=== PATIENT | male | born 1995 | race Two or more races ===

== ENCOUNTER 2025-05-27 17:51 | Emergency (ER) | payer OTHER, SELFPAY ==
--- NOTE | ~2025-05-27 | XR_ITS ---
CLINICAL HISTORY: constipation?? 1 view abdomen Comparison: None provided Findings: No pneumoperitoneum or pneumatosis. No abnormal calcifications. No acute fractures. IMPRESSION: Normal stool quantity. This document has been electronically signed by: Anthony Vanegas MD on 05/27/2025 22:10:20
[2025-05-27 18:03] VITALS: BP 165/71; PULSE 86; RESP 18; TEMP 36.3; O2SAT 99; BMI 34.7
--- OUTSIDE RECORDS SUMMARY | 2025-05-27 18:31 | XMS_ITS | Data Portability ---
Author Organization THOMAS [facility] [facility], [address] Address [address] [place] [address] Assessment No assessment recorded. Plan of Treatment Reminders Order Date Submit Date Provider Last Modified By Organization Details Last Modified Time Details Appointments None recorded. Lab culture, respiratory 2022 023 [place] [facility], [address] [place] [address], [place], [address], 3 18:05:45 Referral None recorded. Procedures None recorded. Surgeries None recorded. Imaging None recorded. Medication Orders amoxicillin 875 mg-potassiu m clavulanate 125 mg tablet 2022 023 [facility] #[id number], [address] [place], [address], 3 16:23:39 prednisone 10 mg tablet 2022 023 [facility] #[id number], [address] [place], [address], 3 16:23:39 Patient TargetsNo targets recorded. Patient Instructions Encounter Date Encounter Id Patient Instructions Last Modified By Organization Details Last Modified Time 08/03/2022 [id number] uvulitis: care instructions [email or web address] Not available 08/03/2022 16:23:37 Based on your Presentation, Exam, and Lab Testing you are being diagnosed with Uvulitis. Take Benedryl when you get home. Most likely your swollen uvula is being caused by a virus, acid from vomiting, bacteria, or yeast. I am going to send a Throat Culture to the. This will take about 72 hours for that result to return. We will contact you if it positive - if for some reason you don't get a copy of your results or hear from us - please contact our office. I am going to prescribe you and antibiotic to cover this infection. Please be sure to complete the full course of this antibiotic to prevent antibiotic resistance. Antibiotics will typically take 4-5 days to start to work with symptom improvement. You were prescribed Prednisone - Here is some general Information regarding this medication. 1. Make sure you take with Food 2. Do not take right before bedtime -this should be taken during the day because it may make you a little more wired. May keep you from sleeping. 3. Prednisone will increase glucose -so if you are a diabetic then you will need to monitor your glucose closely. Please d/c if glucose goes above 300. 4. Do not take this medication with Ibuprofen The following are my other recommendations to help with symptoms and is important for this diagnosis: 1. Do not share any food or drinks - strep is passed through direct saliva exchange (NOT IN THE AIR) 2. Change your toothbrush in 3-4 days so that you don't re-infect yourself after you complete the antibiotic. 3. Take Ibuprofen or Tylenol if you do not have any allergies to these medications. If you take a blood thinner you should not take NSAIDS like Ibuprofen. These medication will help with the inflammation in your respiratory tract which should help the cough. (I would alternate between Tylenol 650 mg and your Ibuprofen 600 mg every 4 hours) 4. Do not take any Cold Medications that have a Decongestant in it - this will dry out your throat and make the sore throat worse. 5. Drinking Hot Tea with honey can help coat and soothe your throat. 6. You would be considered contagious for the next 24-48 hours, or until fever resolves. I would be seen again if you develop any of the following symptoms. 1. Fever > 101.0 2. Stiff neck - where you can't turn your neck 3. Trouble swallowing your saliva - drooling 4. Swelling of a lymph node in your throat that is painful to touch 5. Difficulty breathing 6. Severe Headache Thank you for using [facility] today, please feel free to contact our office if you have any questions or concerns. Not available 08/03/2022 16:31:56 Reason for Referral None Reported. Results Created Date Observation Date Name Description Value Unit Range Abnormal Flag Note LastModifiedBy Organization Detail LastModifiedTime 08/03/1908/06/2022 UPPER RESPI RATOR Y CULTU RE upper respiratory culture FINAL REPORT Not Available [facility] ([facility]) [address], [place], [address], 08/06/2022 18:05:44 08/03/1908/06/2022 UPPER RESPI RATOR Y CULTU RE result 1 COMMEN T Routi ne respi rator y peter Not Available [facility] ([facility]) [address], [place], [address], 08/06/2022 18:05:44 Result Notes None recorded. Problems No Known Problems Medical Equipment None Reported. Allergies No known drug allergies Medications Name Sig Start Date Stop Date Status Note LastModified by Organization Details LastModified Time prednisone 10 mg tablet 4 pills po qd x 3 days, 3 pills po qd x 3 days, 2 pills po qd x 2 days, 1 pills po qd x 2 days 023 active Not Available Not Available Not Avai lable amoxicillin 875 mg-potassium clavulanate 125 mg tablet Take 1 tablet twice a day by oral route. 023 active Not Available Not Available Not Avai lable Vitals Date Recorded Heart rate Systolic And Diastolic Provider Name and Address Organization Details Last Updated DateTime 08/03/2022 76 /min 134/82 mm[Hg] THOMAS BOATENG [address] [place], [address], [place] - [facility] 08/03/2022 16:34:04 Date Recorded Body weight Body mass index (BMI) Body height Oxygen saturation Oxygen saturation in Arterial blood by Pulse oximetry Pain severity - 0-10 verbal numeric rating [Score] - Reported Heart rate Respiratory rate Systolic And Diastolic Provider Name and Address Organization Details Last Updated DateTime 3 216696. 86 g 40.2 kg/m2 177.8 cm 98 % 98 % 6 120 /min 18 /min 174/113 mm[Hg] KADY RECINOS [place] - [facility] 15:57:25 Social History Question Answer Notes LastModified by Organizat ion Details LastModified Time Tobacco Smoking Status Never Smoker THOMAS Ramirez - [facility] 08/03/2022 15:56:48 Have You Recently Traveled Abroad? No Information not available 08/03/2022 Sex: Unknown Functional Status Question Answer Note LastModified by Organizat ion Details LastModified Time Do you use any illicit or recreational drugs? No Information not available 08/03/2022 Do you or have you ever used any other forms of tobacco or nicotine? No Information not available 08/03/2022 What is your level of alcohol consumption? None Information not available 08/03/2022 Are you currently employed? Yes Information not available 08/03/2022 Mental Status None recorded. Family History Nothing Reported. Medical History No medical history recorded. Past Encounters Encounter ID Performer Location Encounter Start Date Encounter Closed Date Diagnosis/Indication Diagnosis SNOMED-CT Code Diagnosis ICD10 Code Diagnosis IMO Codes Diagnosis Note [id number] THOMAS BOATENG [address] [address] 08/03/2022 13:51:44 08/03/2022 16:32:43 Uvulitis 424227445 K12.2 augmentin Health Concerns Section Related Observation LastModified by Organization Detai ls LastModified Time None Recorded Concern Status LastModified by Organization Details LastModified Time None Recorded Advance Directives Directive None Recorded Payers Insurance Date Sequence Insurance Name Policy Number Policy Sanders Covered Member ID Sanders Member ID Guarantor Name 08/03/2022 PROMPT PAY [place] Notes Date Note Type Note Provider Name and Address Organization Details Recorded Time 08/03/2022 text/html Sore throatRepor em by PatientSore ThroatFor associated symptoms, patient reportscoughingbut reportsno sputum production,no shortness of breath, andno wheezing. For source of patient information, patient reportsinformation obtained from patientandpatient arrived at urgent care ambulatory(presents with mom who is helping him to talk). For location, patient reportsthroat. For severity, patient reportsmild. For onset/timing, patient reports1 days.The patients mom reports he woke up this morning with an upset stomach and vomited a few times. After that he started to develop swelling on the uvula that is enlongated now. He states that when he tries to talk it causes him to gag and cough. No pain. No fever. Nausea is gone. Non smoker. No lip or tongue swelling. THOMAS BOATENG [facility] [place], [address], [place] - [facility] 08/03/2022 16:34:24
[2025-05-27 18:35] LABS: MANUAL DIFF FLAG NO
[2025-05-27 18:40] LABS: Hematocrit 43.3 % (42.0-52.0); Hemoglobin 14.8 g/dl (14.0-18.0); Imm Gran Abs Auto 0.03 X10*3/uL (0.00-0.03); Imm Gran Pct Auto 0.3 % (0.0-0.4); Lymphocytes Absolute Auto 2.2 X10*3/uL (1.2-4.9); Mean Corpuscular HGB Conc 34.2 g/dl (31.0-36.0); Mean Corpuscular Hemoglobin 28.1 pg (27.0-33.0); Mean Corpuscular Volume 82.2 fL (80.0-98.0); NRBC Abs Auto 0.000 X10*3/uL (0.0-0.012); NRBC Pct Auto 0.0 /100WBC (0.0-0.2); Platelet Count 355 X10*3/uL (160-400); Red Blood Count 5.27 X10*6/uL (4.60-5.80); White Blood Count 8.6 X10*3/uL (4.8-10.8)
[2025-05-27 18:54] LABS: Alanine Aminotransferase 36 U/L (0-40); Albumin Level 4.9 g/dL (3.5-5.0); Alkaline Phosphatase 112 U/L (39-117); Anion Gap 16 (12-20); Aspartate Amino Transferase 26 U/L (5-37); Blood Urea Nitrogen 11 mg/dL (9-16); Calcium 9.8 mg/dL (8.4-10.2); Carbon Dioxide 24 mmol/L (22-29); Chloride 105 mmol/L (96-108); Creatinine Clr Calc Pharmacy 153.2; Estimated Glomerular Filt Rate > 60; Lipase 34 U/L (8-78); Potassium 4.1 mmol/L (3.3-5.1); Sodium 141 mmol/L (135-145); Total Protein 8.5 g/dL (6.5-8.0)
[2025-05-27 20:46] VITALS: BP 159/91; PULSE 83; RESP 16; TEMP 36.9; O2SAT 99
[2025-05-27] MEDS: Sucralfate Oral Suspension 1 GM/10 ML ORAL.SUSP PO (22:16)
--- NOTE | 2025-05-27 23:02 | ED_ITS ---
HPI - General Adult General Chief complaint: Abdominal Pain Stated complaint: Stomach Pain Time Seen by Provider: 05/27/25 21:25 Source: patient Limitations: no limitations History of Present Illness ED Provider: Sharon Kaur PA-C HPI narrative: 29-year-old male with a history of hypertension and diabetes, presents with a epigastric pain x1 day. Pain described as indigestion is nonradiating. Denies postprandial symptoms, nausea vomiting or diarrhea. Patient states he does struggle with constipation. Denies abdominal distention or inability to pass flatus. Related Data Previous Rx's ?Medication ?Instructions ?Recorded sucralfate 100 mg/mL oral 10 ml PO QID PRN indigestion #300 05/27/25 suspension (Carafate) mL Allergies Allergy/AdvReac Type Severity Reaction Status Date / Time No Known Allergies Allergy Verified 05/27/25 18:06 Review of Systems 2 Review of Systems: Yes all other systems are reviewed and are negative Constitutional: Constitutional: Denies fatigue and Denies fever(s) Cardiovascular: Cardiovascular: Denies chest pain and Denies dyspnea Respiratory: Respiratory: Denies dyspnea Gastrointestinal: Gastrointestinal: Reports abdominal pain, Reports constipation, Reports dyspepsia, Reports heartburn, Denies diarrhea, Denies nausea and Denies vomiting Endocrine: Endocrine: Denies fatigue PMFSH Past Medical History Attestation statement: The following information was validated with the patient. Social History Social History Smoked in Last 30 Days: No Use of substances other than those prescribed or required for medical reasons: No Advance Directives: No Advance Directives Information Provided: Yes Do you have a plan to hurt others: No Plan Physical Exam ED Vital Signs: Vital Signs - 24 hr 05/27/25 18:03 05/27/25 20:46 Temperature 97.3 F 98.4 F Pulse Rate 86 83 Respiratory Rate 18 16 Blood Pressure 165/71 H 159/91 H Pulse Oximetry 99 99 Oxygen Delivery Method Room Air Room Air BMI result Body Mass Index 34.7 Const Other: Alert well-appearing Orientation/consciousness: patient oriented x3 Resp Effort & Inspection: normal respiratory effort Cardio Other: Normal peripheral perfusion GI Other: Abdomen is soft, nondistended, nontender no guarding Skin Other: Warm dry no rash Neuro General: patient oriented x3, gait normal, no focal motor deficits and CN's II- XI intact bilaterally Psych Other: Cooperative Medications Administered Discontinued Medications Generic Name Dose Route Start Last Admin Trade Name Stephen PRN Reason Stop Dose Admin Sucralfate 1 gm 05/27/25 21:45 05/27/25 22:16 Sucralfate Oral Suspension 1 Gm/10 Ml Oral.Susp PO 05/27/25 21:46 1 gm ONCE ONE Administration Medical Decision Making Medical Decision Making [facility] Narrative: 29-year-old male with a history of hypertension and diabetes, presents with a epigastric pain x1 day. Pain described as indigestion is nonradiating. Denies postprandial symptoms, nausea vomiting or diarrhea. Patient states he does struggle with constipation. Denies abdominal distention or inability to pass flatus. Problem: Diabetes, constipation History: Per patient I have considered the following differential diagnoses: Cholecystitis, biliary colic, gastritis/GERD, pancreatitis, constipation, bowel obstruction Plan: Given upper abdominal symptoms, I did consider underlying biliary versus gastric as primary etiologies as cause for his symptoms. However, with the his screening labs, his LFTs are normal, he does not have focal right upper quadrant pain, no indication for advanced imaging. His symptoms are most consistent with poorly controlled acid reflux, he may also be constipated, which would be a common trigger, obtaining a KUB. Giving Carafate. To note he has no obstructive symptoms at this time. I have independently reviewed the following tests: Labs: KUB: Differential Diagnosis Differential Diagnoses: The differential diagnosis associated with the presentation includes See medical decision-making Admission/Observation Consideration of admission/observation: Escalation of care including admission/observation considered Not applicable Lab Data [facility] Lab Attestation statement: I reviewed the patient's lab results. 05/27/25 18:31 05/27/25 18:31 Labs: Lab Results 05/27/25 Range/Units 18:31 WBC 8.6 (4.8-10.8) X10*3/uL RBC 5.27 (4.60-5.80) X10*6/uL Hgb 14.8 (14.0-18.0) g/dl Hct 43.3 (42.0-52.0) % MCV 82.2 (80.0-98.0) fL MCH 28.1 (27.0-33.0) pg MCHC 34.2 (31.0-36.0) g/dl RDW 12.8 (11.0-16.0) % Plt Count 355 (160-400) X10*3/uL MPV 8.1 L (9.4-12.4) fL Immature Gran % (Auto) 0.3 (0.0-0.4) % Neut % (Auto) 66.4 (45-73) % Lymph % (Auto) 25.9 (20-40) % [place] % (Auto) 6.6 (2-11) % Eos % (Auto) 0.6 (0-4) % Baso % (Auto) 0.2 (0-2) % Lymph # (Auto) 2.2 (1.2-4.9) X10*3/uL [place] # (Auto) 0.6 (0.1-1.2) X10*3/uL Eos # (Auto) 0.1 (0.0-0.4) X10*3/uL Baso # (Auto) 0.0 (0.0-0.2) X10*3/uL Abs Immat Gran (auto) 0.03 (0.00-0.03) X10*3/uL Absolute Neuts (auto) 5.7 (2.0-8.3) x10*3/uL Absolute Nucleated RBC 0.000 (0.0-0.012) X10*3/uL Nucleated RBC % (auto) 0.0 (0.0-0.2) /100WBC Sodium 141 (135-145) mmol/L Potassium 4.1 (3.3-5.1) mmol/L Chloride 105 (96-108) mmol/L Carbon Dioxide 24 (22-29) mmol/L Anion Gap 16 (12-20) BUN 11 (9-16) mg/dL Creatinine 0.83 (0.5-1.4) mg/dL Estim Creat Clear Calc 153.2 Estimated GFR > 60 Random Glucose 127 H (60-115) mg/dL Calcium 9.8 (8.4-10.2) mg/dL Total Bilirubin 1.0 (0.0-1.0) mg/dL Direct Bilirubin 0.3 (0.0-0.5) mg/dL AST 26 (5-37) U/L ALT 36 (0-40) U/L Alkaline Phosphatase 112 (39-117) U/L Total Protein 8.5 H (6.5-8.0) g/dL Albumin 4.9 (3.5-5.0) g/dL Lipase 34 (8-78) U/L Radiology Impression Discussion of test interpretation with radiology: I have reviewed the radiologist's reading. Discharge Plan Discharge Clinical Impression: Gastroesophageal reflux disease, Acute epigastric pain Patient Disposition: Home, Self-Care Instructions: GERD (Gastroesophageal Reflux Disease) (ED), Epigastric Pain (ED) Additional Instructions: All of your screening labs were normal, the x-ray did not reveal that you were considerably constipated. Your symptoms are most consistent with poorly controlled acid reflux. See home care instructions. Some common food triggers are spicy, acidic, fatty greasy food. Carbonation, alcohol, caffeine are also common triggers. Do not eat 3 hours before bed. Eating smaller meals throughout the day instead of 3 large meals, can also help deter symptoms. Keeping your issue with the constipation controlled, can also help prevent reflux symptoms. Use the Carafate as needed for upper abdominal discomfort. Follow up with your primary care provider as needed. Prescriptions: New sucralfate [Carafate] 100 mg/mL suspension 10 ml PO QID PRN (Reason: indigestion) Qty: 300 0RF Rx Instructions: swish in mouth and swallow; use after food/drink Stand Alone Forms: Work/School Release Print Language: Bhutanese
[2025-05-27 23:15] VITALS: BP 142/86; PULSE 62; RESP 16; TEMP 36.9; O2SAT 99
== END 2025-05-27 23:17 | disposition home or self-care (01) ==
PROVIDERS: Emergency Provider Emergency Medicine; PCP Family Medicine
DX: K21.9 Gastro-esophageal reflux disease without esophagitis (principal); R10.13 Epigastric pain; I10 Essential (primary) hypertension; E11.9 Type 2 diabetes mellitus without complications
CPT/HCPCS: 36415; 74018; 80048; 80076; 83690; 85025; 99283; 99284

== ENCOUNTER → 2025-05-27 21:45 | Outpatient (BNV) | payer OTHER, SELFPAY | PROVIDERS: Emergency Provider Emergency Medicine; PCP Family Medicine; Visit Provider Radiology Diagnostic Radiology | DX: Z03.89 Encounter for observation for other suspected diseases and conditions ruled out (principal) | CPT/HCPCS: 74018 ==